=== PATIENT | female | born 1935 | race Caucasian/White ===

== ENCOUNTER 2017-07-27 10:32 | Emergency (ER) | payer MEDICARE, MEDICAID ==
[~2017-07-27] VITALS: Ht 162.6 cm; Wt 65.0 kg
[~2017-07-27 10:32] MED LIST: CEPH250T PO; CEPH500C5 PO
[2017-07-27 10:58] VITALS: BP 138/81
== END 2017-07-27 12:36 | disposition home or self-care (01) ==
LOC: ER 10:33
DX: S51.802A Unspecified open wound of left forearm, initial encounter (principal); W45.8XXA Other foreign body or object entering through skin, initial encounter; Y93.89 Activity, other specified; Y92.89 Other specified places as the place of occurrence of the external cause; Y99.8 Other external cause status
CPT/HCPCS: 99283; A6222; A6446; A6449

== ENCOUNTER 2017-07-31 09:15 | Day surgery (SDC) | payer MEDICARE, MEDICAID ==
[2017-07-31] MEDS ORDERED: LIDOcaine 2% 5ml jelly ONE (10:08)
== END 2017-07-31 11:07 | disposition home or self-care (01) ==
LOC: WOUND CARE 09:15
PROVIDERS: ATTEND Surgery
DX: S51.802A Unspecified open wound of left forearm, initial encounter (principal); Z86.73 Personal history of transient ischemic attack (TIA), and cerebral infarction without residual deficits; X58.XXXA Exposure to other specified factors, initial encounter; Y93.89 Activity, other specified; Y92.89 Other specified places as the place of occurrence of the external cause; Y99.8 Other external cause status
CPT/HCPCS: 11100; A6021; A6209; A6223

== ENCOUNTER 2017-08-08 10:42 | Day surgery (SDC) | payer MEDICARE, MEDICAID ==
[2017-08-08] MEDS ORDERED: LIDOcaine 2% 5ml jelly ONE ×2 (11:36→11:59)
[2017-08-08] MEDS ORDERED: NO HOME MEDS (15:04)
== END 2017-08-08 12:28 | disposition home or self-care (01) ==
LOC: WOUND CARE 10:42
PROVIDERS: ATTEND Surgery
DX: L98.492 Non-pressure chronic ulcer of skin of other sites with fat layer exposed (principal); Z86.73 Personal history of transient ischemic attack (TIA), and cerebral infarction without residual deficits; X58.XXXD Exposure to other specified factors, subsequent encounter
CPT/HCPCS: 11042; A6021; A6222; 88304

== ENCOUNTER 2017-08-29 10:56 | Day surgery (SDC) | payer MEDICARE, MEDICAID ==
[~2017-08-29 10:56] MED LIST changes: -CEPH250T PO; -CEPH500C5 PO; +NO HOME MEDS
[2017-08-29] MEDS ORDERED: LIDOcaine 2% 5ml jelly ONE (11:15)
== END 2017-08-29 11:28 | disposition home or self-care (01) ==
LOC: WOUND CARE 10:56
PROVIDERS: ATTEND Surgery
DX: L98.492 Non-pressure chronic ulcer of skin of other sites with fat layer exposed (principal); Z86.73 Personal history of transient ischemic attack (TIA), and cerebral infarction without residual deficits; X58.XXXD Exposure to other specified factors, subsequent encounter
CPT/HCPCS: 97597; A6021; A6206; A6212

== ENCOUNTER 2018-12-02 11:16 | Emergency (ER) | payer MEDICARE, MEDICAID ==
[~2018-12-02] VITALS: Ht 162.6 cm; Wt 63.6 kg
[2018-12-02 11:43] VITALS: BP 136/73
--- NOTE | 2018-12-02 13:52 | NUR ---
katty Carranza called said she is on her way down to see pt
== END 2018-12-02 14:21 | disposition left against medical advice (07) ==
LOC: ER 11:17
DX: R23.4 Changes in skin texture (principal); Z71.89 Other specified counseling; Z86.73 Personal history of transient ischemic attack (TIA), and cerebral infarction without residual deficits
CPT/HCPCS: 99284

== ENCOUNTER 2018-12-12 11:17 | Emergency (ER) | payer MEDICARE, MEDICAID ==
[~2018-12-12] VITALS: Ht 160 cm; Wt 60.0 kg
--- NOTE | 2018-12-12 12:42 | NUR ---
SPOKE TO CONCRETE BOOM OPERATOR DOROTHY REGARDING PATIENT: PER DOROTHY: PATIENT HAS AN APARTMENT, IS CURRENTLY KNOWN TO [facility], AND USES [facility] FOR TRANSPORTATION
[2018-12-12] MEDS ORDERED: bacitracin 15gm ointment TP ONE (12:55)
[2018-12-12 13:36] VITALS: BP 122/71
== END 2018-12-12 13:41 | disposition home or self-care (01) ==
LOC: ER 11:18
DX: L08.89 Other specified local infections of the skin and subcutaneous tissue (principal); Z86.73 Personal history of transient ischemic attack (TIA), and cerebral infarction without residual deficits
CPT/HCPCS: 99283

== ENCOUNTER 2020-02-23 21:47 | Emergency (ER) | payer MEDICARE, MEDICAID ==
[~2020-02-23] VITALS: Ht 162.6 cm; Wt 80.0 kg
[2020-02-23 22:36] LABS: BASOPHILS % (AUTO) 0.7 % (0-1); EOSINOPHILS # (AUTO) 0.1 X10'3 (0-0.9); EOSINOPHILS % (AUTO) 2.2 % (0-6); HEMATOCRIT 41.9 % (35.0-45.0); HEMOGLOBIN 14.1 g/dl (12.0-16.0); LYMPHOCYTES # (AUTO) 3.1 X10'3 (1.1-4.8); LYMPHOCYTES % (AUTO) 59.9 % (21-51); MEAN CORPUSCULAR HEMOGLOBIN 31.6 PG (27.0-31.0); MEAN CORPUSCULAR HGB CONC 33.8 g/dL (33.0-36.5); MEAN CORPUSCULAR VOLUME 93.5 FL (78-98); MEAN PLATELET VOLUME 8.4 FL (7.4-10.4); MONOCYTES # (AUTO) 0.4 X10'3 (0-0.9); MONOCYTES % (AUTO) 7.1 % (2-12); NEUTROPHILS # (AUTO) 1.5 X10'3 (1.8-7.7); NEUTROPHILS % (AUTO) 30.1 % (42-75); PLATELET COUNT 189 X10'3 (140-440); RED BLOOD COUNT 4.48 X10'6 (4.20-5.60); RED CELL DISTRIBUTION WIDTH 13.2 % (11.5-14.5); WHITE BLOOD COUNT 5.1 X10'3 (4.5-11.0)
[2020-02-23 22:43] LABS: PARTIAL THROMBOPLASTIN TIME 25 SECONDS (22-32)
[2020-02-23 22:45] LABS: ALANINE AMINOTRANSFERASE 16 U/L (12-78); ALBUMIN 3.8 G/DL (3.4-5.0); ALKALINE PHOSPHATASE 88 IU/L (46-116); ANION GAP 9 (8-16); ASPARTATE AMINO TRANSFERASE 20 U/L (10-37); BILIRUBIN,TOTAL 0.8 MG/DL (0.1-1.0); BLOOD UREA NITROGEN 31 MG/DL (7-18); BUN/CREATININE RATIO 32.6 (6.6-38.0); CALCIUM 9.1 MG/DL (8.5-10.1); CHLORIDE 105 MMOL/L (99-107); CREATININE 0.95 MG/DL (0.40-0.90); GLUCOSE 95 MG/DL (70-104); POTASSIUM 3.7 MMOL/L (3.5-5.1); SODIUM 140 MMOL/L (135-145); TOTAL CARBON DIOXIDE 26.2 MMOL/L (24-32); TOTAL PROTEIN 7.6 G/DL (6.4-8.2); eGFR 56 ML/MIN
[2020-02-23 23:02] LABS: PLATELET ESTIMATE NORMAL; TOTAL CELLS COUNTED 100
[2020-02-23 23:25] LABS: ETHANOL < 0.010 GM/DL (0.0-0.010)
[2020-02-23] MEDS ORDERED: haloperidol lactate 5mg/ml inj IM ONE (23:25)
--- NOTE | 2020-02-24 | NUR ---
PATIENT IN BED EYES OPEN RR EVEN UN LABORED NO OBSERVABLE S/S OF ACUTE STRESS AT THIS TIME WILL CONTINUE TO MONITOR
--- NOTE | 2020-02-24 02:18 | NUR ---
PATIENT IN BED SUPINE COVERS ON EYES CLOSED RR EVEN UN LABORED NO OBSERVABLE S/S OF ACUTE STRESS AT THIS TIME WILL CONTINUE TO MONITOR
--- NOTE | 2020-02-24 03:40 | NUR ---
PT GIVEN JUICE AND JELLO PER REQUEST. NO OTHER NEEDS AT THIS TIME
[2020-02-24 04:03] LABS: CLARITY,URINE SLIGHTLY CLOUDY (Clear); COLOR,URINE YELLOW (Yellow); GLUCOSE, URINE NEGATIVE (Neg); KETONES,URINE 15 mg/dl (Neg); LEUKOCYTE ESTERASE ,URINE SMALL (Neg); NITRITES, URINE POSITIVE (Neg); OCCULT BLOOD,URINE SMALL (Neg); PROTEIN,URINE NEGATIVE (Neg); UROBILINOGEN,URINE 0.2 E.U/dL (0.2-1.0)
[2020-02-24 04:04] LABS: UA COLLECTION TYPE VOIDED
[2020-02-24 04:09] LABS: RBC,URINE 0-2 /HPF (0-2); SQUAMOUS EPITHELIAL CELL,UR MODERATE /LPF (FEW); WBC,URINE 20-30 /HPF (0-4)
[2020-02-24 04:10] LABS: BACTERIA,URINE 4+ /HPF (Neg)
[2020-02-24 04:17] LABS: URINE AMPHETAMINE SCREEN NEGATIVE (Neg); URINE BARBITUATE SCREEN NEGATIVE (Neg); URINE BENZODIAZEPINES SCREEN NEGATIVE (Neg); URINE CANNABINOID SCREEN NEGATIVE (Neg); URINE COCAINE SCREEN NEGATIVE (Neg); URINE METHADONE SCREEN NEGATIVE (Neg); URINE OPIATE SCREEN NEGATIVE (Neg); URINE PHENCYCLIDINE SCREEN NEGATIVE (Neg)
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
[2020-02-24] MEDS: cephalexin 250mg capsule PO SCH ×4 (10:04→22:18)
--- NOTE | 2020-02-24 12:25 | NUR ---
social media content manager called and report was given. pt cleared from [id number]
--- NOTE | 2020-02-24 12:27 | NUR ---
scmh cleared pt from [id number]
--- NOTE | 2020-02-24 15:42 | NUR ---
SPOKE WITH ROBERT, MORTGAGE LOAN COMPUTATION CLERK AND SAID DR. TRIPATHI TOLD HER NOT TO GET INVOLVED BECAUSE HE FEELS SHE IS A MENTAL HEALTH HOLD AND PT SHOULD BE RE EVALUATED BY PAM FROM [facility]. AND EVALUATION SHOULD BE DONE WITH PROVIDER PRESENT.
--- NOTE | 2020-02-24 15:48 | NUR ---
INFORMED DR. Mcknight OF ABOVE. HES OK WITH NOT BEING PRESENT IN THE ROOM WHEN PAM REEVALUATES.
--- NOTE | 2020-02-24 16:22 | NUR ---
ROBERT SOC WORKER CALLED. PAM CLEARED HER OF MENTAL HEALTH, BUT HE FEELS SHE IS A DANGER, NOT SAFE TO GO HOME. PAM FEELS SHE NEEDS TO BE ADMITTED. ROBERT ALSO MENTIONED IF DAUGHTER NAMAN [phone], COULD COME GET PT THAT WOULD BE GOOD.
--- NOTE | 2020-02-24 16:24 | NUR ---
PAM FROM [facility] FEELS PT HAS DEMENTIA.
--- NOTE | 2020-02-24 17:49 | NUR ---
CALLED NAMAN DAUGHTER X2 NO ANSWER. UNABLE TO LEAVE MESSAGE.
[2020-02-24] MEDS ORDERED: CefTRIAXone 2gm/D5W 50ml BAG 50 ML IV ONE (19:05)
[2020-02-24] MEDS ORDERED: normal saline 1000ML IV soln IVB ONE (19:05)
[2020-02-24] MEDS ORDERED: CEPH-572 PO (21:13)
[2020-02-24] MEDS: lactobacillus rhamnosus 10,000 MMU CELLS/CAPSULE PO SCH (22:18)
--- NOTE | 2020-02-25 00:42 | NUR ---
resting comfortably in bed, eyes closed respirations even
--- NOTE | 2020-02-25 03:08 | NUR ---
resting comfortably in bed, eyes closed respirations even
[2020-02-25] MEDS: lactobacillus rhamnosus 10,000 MMU CELLS/CAPSULE PO SCH ×2 (08:26→20:13)
[2020-02-25] MEDS: cephalexin 250mg capsule PO SCH ×4 (08:26→22:43)
--- NOTE | 2020-02-25 09:16 | NUR ---
PT SITTING UP IN BED EATING BREAKFAST.
--- NOTE | 2020-02-25 09:52 | NUR ---
currently awaiting for a social worker palliative care consult
--- NOTE | 2020-02-25 10:15 | NUR ---
Assumed care of the patient from Enio Kwong RN. Pt is awaiting Water Aerobics Instructor Consult to assist with plan for safe discharge.
--- NOTE | 2020-02-25 11:15 | NUR ---
Pt is resting with even and unlabored respirations. Pt has no distress noted.
--- NOTE | 2020-02-25 12:12 | NUR ---
Continuing to monitor, no change in condition.
--- NOTE | 2020-02-25 13:04 | NUR ---
Awaiting Equipment Detailer Consult at this time.
--- NOTE | 2020-02-25 13:19 | NUR ---
Spoke with Metal Sprayer who reports the patient is supposed to be evaluated by Dr. Juarez and then potentially may require admission to the hospital due to unsafe discharge to home.
--- NOTE | 2020-02-25 14:49 | NUR ---
Phoned [facility] and spoke with Alisa, Kelp Or Seagrass Gatherer. She is aware of the patient's situation and reports there is not much of a relationship between the patient and her only daughter who is nearby. She instructed me to print off the SOC 341 and complete it and fax it to their office.
--- NOTE | 2020-02-25 16:32 | NUR ---
Pt's daughter is coming to the ED to pick her up daughter for discharge to home. Pt has no distress noted at this time.
--- NOTE | 2020-02-25 17:55 | NUR ---
Pt given ativan IM injection as ordered at this time for aggressive behavior. Pt assisted back to the bed. Pt's daughter refused to wait any longer. She sent the patient's belonging back in to the ED and reported she is leaving and not to phone her again. Pt is unable to be discharged to home at this time. Continuing to monitor the patient.
--- NOTE | 2020-02-25 17:56 | NUR ---
Patient signed discharge instructions with good understanding of discharge instructions. Once neena arrived to take pt home, patient refused to leave without going through and organizing her 4 bags here. Instructed pt that she could organize who belongings at home. Patient became very combative refusing to leave. Patients belongings taken to daughters car. Patient continues to be aggressive and refusing to leave. Asked daughter to take belongings home and daughter refused. Patient belongings returned to lock up.
[2020-02-25] MEDS ORDERED: LORazepam 2 mg/ml vial IM ONE (18:00)
--- NOTE | 2020-02-25 18:52 | NUR ---
ED staff member sat with the patient in the room while she was eating a carton of yogurt. Pt took her anbitiotic capsules while eating yogurt. Pt is going to remain in the ED at this time until a safe plan for placement or discharge is able to be reached upon the arrival of social service technician in the morning.
--- NOTE | 2020-02-25 19:42 | NUR ---
Pt is sitting upright on the end of the gurney eating her dinner tray. Pt also has paperwork spread out on the bed. Pt has a notice of pay or quit from the apartment complex where she resides. Charge nurse instructed to get a hospital bed for the patient so she will be more comfortable until she is given a disposition.
--- NOTE | 2020-02-25 20:48 | NUR ---
No change in condition. Continuing to monitor the patient.
--- NOTE | 2020-02-25 21:05 | NUR ---
Pt's bed changed from ED gurney to a hospital bed. Pt assisted to transition to the hospital bed without injury. Pt has a bag of her belongings and is going through paperwork. Pt is calm and cooperative currently.
--- NOTE | 2020-02-26 04:30 | NUR ---
pt awake and got up independantly to walk to br, using walker with steady gait. Pt now sitting on the bed and going through her personal belongings bag. Denies any needs.
[2020-02-26 05:20] VITALS: BP 108/67
--- NOTE | 2020-02-26 06:08 | NUR ---
Pt remainis awake and continues sitting at the edge of her bed looking
[2020-02-26] MEDS: lactobacillus rhamnosus 10,000 MMU CELLS/CAPSULE PO SCH (08:00)
[2020-02-26] MEDS: cephalexin 250mg capsule PO SCH ×3 (08:00→17:00)
--- NOTE | 2020-02-26 10:23 | NUR ---
cm at bedside to see pt. pt agrees to go home. no distress noted. pt ambulated to bathroom with bag of belongings no assistance needed.
--- NOTE | 2020-02-26 10:56 | NUR ---
Pt refusing VS
--- NOTE | 2020-02-26 12:53 | NUR ---
Pt resting comfortably with eyes closed
--- NOTE | 2020-02-26 14:46 | NUR ---
Search Marketing Analyst at bedside.
== END 2020-02-26 17:07 | disposition home or self-care (01) ==
LOC: ER 21:48
DX: N39.0 Urinary tract infection, site not specified (principal); Z86.73 Personal history of transient ischemic attack (TIA), and cerebral infarction without residual deficits; Z79.899 Other long term (current) drug therapy
CPT/HCPCS: 36415; 80053; 80305; 80320; 81001; 85007; 85025; 85730; 87077; 87088; 87186; 96372; 99285; J7030